=== PATIENT | female | born 1935 | race Caucasian/White ===

== ENCOUNTER 2016-05-25 14:35 | Inpatient (IN) | payer MEDICARE, OTHER ==
--- NOTE | 2016-05-25 14:55 | ER Document Report ---
ED Respiratory Problem - General Time seen by provider: 15:00 Mode of Arrival: Medic Information source: Emergency Med Personnel - HPI Onset: This afternoon - see HPI note Similar symptoms previously: No Recently seen / treated by doctor: No <LAURA CORNELIUS - Last Filed: 05/25/16 17:47> <REZA CAIN - Last Filed: 05/25/16 18:00> - General Stated Complaint: DIFFICULTY BREATHING Notes: Patient is an 80 year old female presenting to the emergency department via EMS for difficulty breathing, weakness, and fever. EMS was summoned for lethargic behavior and difficulty breathing. Patient was found to have a fever of 101 F via EMS and was given 975 Tylenol per rectum. Patient is on home oxygen. Patient takes albuterol, xanex, and hypertension medications. (LAURA CORNELIUS) - Related Data Allergies/Adverse Reactions: Penicillins Allergy (Verified 05/25/16 16:35) codeine Adverse Reaction (Verified 05/25/16 16:35) Past Medical History - General Information source: Emergency Med Personnel Cannot obtain history due to: Altered mental status - Social History Smoking Status: Unknown if Ever Smoked Family History: None Patient has suicidal ideation: No Patient has homicidal ideation: No - Past Medical History Cardiac Medical History: Reports: Hx Hypertension Pulmonary Medical History: Reports: Other - home O2 use Psychiatric Medical History: Reports: Hx Anxiety <LAURA CORNELIUS - Last Filed: 05/25/16 17:47> Review of Systems - Review of Systems Constitutional: See HPI, Fever, Weakness EENT: No symptoms reported Cardiovascular: No symptoms reported Respiratory: See HPI, Short of breath, Wheezing Gastrointestinal: No symptoms reported Genitourinary: No symptoms reported Female Genitourinary: No symptoms reported Musculoskeletal: No symptoms reported Skin: No symptoms reported Hematologic/Lymphatic: No symptoms reported Neurological/Psychological: See HPI, Weakness -: Yes All other systems reviewed and negative <LAURA CORNELIUS - Last Filed: 05/25/16 17:47> Physical Exam - Vital signs Interpretation: Febrile - 101 F with EMS <LAURA CORNELIUS - Last Filed: 05/25/16 17:47> <REZA CAIN - Last Filed: 05/25/16 18:00> - Vital signs Vitals: Resp Pulse Ox 20 96 05/25/16 15:45 05/25/16 15:45 - Notes Notes: GENERAL: Patient is somnolent, mumbling, oriented x1, well-nourished and in no acute distress. HEAD: Atraumatic, normocephalic. EYES: Pupils equal round and reactive to light, extraocular movements intact, sclera anicteric, conjunctiva are normal. ENT: Nares patent, nasal cannula in place. Moist mucous membranes. Patent airway. NECK: Normal range of motion, supple without lymphadenopathy. LUNGS: Slight increased accessory muscle use when breathing, scattered rales, mild wheezes. HEART: Tachycardia, regular rhythm without murmurs. ABDOMEN: Soft, non-tender. No guarding, no rebound. No masses appreciated. EXTREMITIES: Normal range of motion, 2+ pitting edema to the lower extremities bilaterally. NEUROLOGICAL: No focal neurological deficits. Moves all extremities spontaneously and on command. PSYCH: Normal affect. Normal mood. SKIN: Warm to touch consistent with fever, dry, normal turgor, no rashes or lesions noted. (LAURA CORNELIUS) Course - Laboratory Result Diagrams: 05/25/16 15:55 05/25/16 15:55 - Consults Dr. Mckay Time consulted: 17:37 <LAURA CORNELIUS - Last Filed: 05/25/16 17:47> - Laboratory Result Diagrams: 05/25/16 15:55 05/25/16 15:55 - EKG Interpretation by Co EKG shows normal: Sinus rhythm Rate: Normal Rhythm: NSR Heart block present: No: 1st Degree, Mobitz 1, Mobitz 2, CHB (3rd degree block) <REZA CAIN - Last Filed: 05/25/16 18:00> - Vital Signs Vital signs: Temp Pulse Resp BP Pulse Ox 98.1 F 23 H 127/59 H 90 L 05/25/16 16:08 05/25/16 16:01 05/25/16 16:01 05/25/16 16:01 - Laboratory Laboratory results interpreted by ne: 05/25/16 05/25/16 05/25/16 15:55 15:55 15:55 WBC 17.8 H RBC 3.11 L Hgb 8.1 L Hct 26.5 L MCH 26.0 L MCHC 30.5 L RDW 16.6 H Lymphocytes % (Manual) 7 L Eosinophils % (Manual) 11 H Abs Neuts (Manual) 13.4 H Absolute Eos (Manual) 2.0 H Carbonic Acid ABG pH ABG pCO2 ABG pO2 ABG HCO3 ABG Total CO2 ABG O2 Saturation Potassium 5.9 H Chloride 90 L Carbon Dioxide 37 H BUN 30 H Glucose 179 H Lactic Acid < 0.5 L Calcium 10.8 H Urine Protein Urine Ascorbic Acid 05/25/16 05/25/16 15:55 16:17 WBC RBC Hgb Hct MCH MCHC RDW Lymphocytes % (Manual) Eosinophils % (Manual) Abs Neuts (Manual) Absolute Eos (Manual) Carbonic Acid 2.98 H ABG pH 7.25 L ABG pCO2 98.9 H* ABG pO2 63.7 L ABG HCO3 42.4 H ABG Total CO2 45.4 H ABG O2 Saturation 86.8 L Potassium Chloride Carbon Dioxide BUN Glucose Lactic Acid Calcium Urine Protein 100 H Urine Ascorbic Acid 40 H - EKG Interpretation by Me Additional EKG results interpreted by me: 05/25/16 15:32 Multiple PACs and PVCs (REZA CAIN) - Consults Dr. Mckay Reason for consultation: 05/25/16 17:[address] Mckay for possible admission; he will admit the patient to IMCU. (LAURA CORNELIUS) Discharge <LAURA CORNELIUS - Last Filed: 05/25/16 17:47> - Discharge Admitting Provider: Hospitalist - Dr. Mckay Unit Admitted: IMCU <REZA CAIN - Last Filed: 05/25/16 18:00> - Discharge Clinical Impression: Pneumonia, Anemia, Dehydration, Acute respiratory failure with hypercapnia Condition: Poor Disposition: ADMITTED INPATIENT Scribe Documentation - Scribe Written by Scribkevin:: Laura Cornelius 05/25/16 15:12 acting as scribe for :: Machelle <LAURA CORNELIUS - Last Filed: 05/25/16 17:47>
[2016-05-25] MEDS ORDERED: IPRATROPIUM/ALBUTEROL 0.5-2.5 MG/3 ML AMPUL NEB ONE ×2 (15:06→15:11)
[2016-05-25] MEDS ORDERED: LEVOFLOXACIN 750 MG/D5W RTU 150 ML IV ONE (16:01)
[2016-05-25] MEDS ORDERED: NORMAL SALINE 1000 ML 500 ML IV ONE (16:03)
[2016-05-25 16:16] LABS: APPEARANCE,URINE SLIGHTLY-CLOUDY; BILIRUBIN,URINE NEGATIVE (NEGATIVE); GLUCOSE, URINE NEGATIVE (NEGATIVE); KETONES,URINE NEGATIVE (NEGATIVE); LEUKOCYTE ESTERASE,URINE NEGATIVE (NEGATIVE); NITRITE,URINE NEGATIVE (NEGATIVE); PROTEIN,URINE 100 mg/dL (NEGATIVE); URINE SPECIFIC GRAVITY 1.013; UROBILINOGEN,URINE NEGATIVE mg/dL (<2.0)
[2016-05-25 16:17] LABS: HEMATOCRIT 26.5 % (36.0-47.0); HEMOGLOBIN 8.1 g/dL (12.0-15.5); HGB HCT DIFFERENCE -2.2; MEAN CORPUSCULAR HGB CONC 30.5 g/dL (32.0-36.0); MEAN CORPUSCULAR VOLUME 85 fl (80-97); RED BLOOD COUNT 3.11 10^6/uL (3.72-5.28); RED CELL DISTRIBUTION WIDTH 16.6 % (11.5-14.0); WHITE BLOOD COUNT 17.8 10^3/uL (4.0-10.5)
[2016-05-25 16:21] LABS: PROTHROMBIN TIME 12.2 SEC (11.4-15.4)
[2016-05-25 16:37] LABS: BASOPHILS % (MANUAL) 0 % (0-2); EOSINOPHILS % (MANUAL) 11 % (0-6); LYMPHOCYTES % (MANUAL) 7 % (13-45); TOTAL CELLS COUNTED 100
[2016-05-25 16:43] LABS: ANISOCYTOSIS 1+; HYPOCHROMASIA SLIGHT; POLYCHROMASIA SLIGHT; TOXIC GRANULATION SLIGHT
[2016-05-25 16:44] LABS: STOMATOCYTES 2+; TARGET CELLS SLIGHT
[2016-05-25 16:46] LABS: ALANINE AMINOTRANSFERASE 42 U/L (9-52); ALBUMIN 3.5 g/dL (3.5-5.0); ALKALINE PHOSPHATASE 108 U/L (38-126); ANION GAP 11 (5-19); ASPARTATE AMINO TRANSFERASE 32 U/L (14-36); BILIRUBIN,DIRECT 0.3 mg/dL (0.0-0.4); BILIRUBIN,TOTAL 0.4 mg/dL (0.2-1.3); BLOOD UREA NITROGEN 30 mg/dL (7-20); CALCIUM 10.8 mg/dL (8.4-10.2); CARBON DIOXIDE 37 mmol/L (22-30); CHLORIDE 90 mmol/L (98-107); CREATININE RESULT 0.76 mg/dL (0.52-1.25); GLUCOSE 179 mg/dL (75-110); POTASSIUM 5.9 mmol/L (3.6-5.0); SODIUM 137.7 mmol/L (137-145); TOTAL PROTEIN 6.5 g/dL (6.3-8.2)
[2016-05-25 16:51] LABS: ARTERIAL BLOOD BASE EXCESS 12.8 mmol/L; ARTERIAL BLOOD O2 SATURATION 86.8 % (94-98)
[2016-05-25] MEDS ORDERED: ACETAMINOPHEN 325 MG TABLET PO PRN (18:06)
[2016-05-25] MEDS ORDERED: AZTREONAM 1 GM in DEXTROSE 5%-WATER 50 ML IV ONE ×4 (19:00)
--- NOTE | 2016-05-25 19:20 | PDOC H&P ---
History of Present Illness Admission Date/PCP: 05/25/16 18:06 Patient complains of: Shortness of breath History of Present Illness: JALYN MERCEDES is a 80 year old female with history of oxygen dependent COPD that presents to the emergency department by EMS with difficulty breathing, weakness , fevers. Patient was noted by EMS to have temperature 101.0F. I cannot obtain adequate history from patient secondary to encephalopathic state from hypercapnia. Past Medical History Cardiac Medical History: Reports: Hypertension Pulmonary Medical History: Reports: Chronic Obstructive Pulmonary Disease (COPD) , Other - home O2 use GI Medical History: Reports: Gastroesophageal Reflux Disease Past Surgical History Past Surgical History: Unable to ascertain given encephalopathic state Social History Smoking Status: Unknown if Ever Smoked - Advance Directive Resuscitation Status: Full Code Family History Family History: Other - Unable to ascertain Parental Family History Reviewed: Yes Children Family History Reviewed: Yes Sibling(s) Family History Reviewed.: Yes Medication/Allergy Allergies/Adverse Reactions: Penicillins Allergy (Verified 05/25/16 16:35) codeine Adverse Reaction (Verified 05/25/16 16:35) Review of Systems ROS unobtainable: Due to mental status Physical Exam Vital Signs: Temp Pulse Resp BP Pulse Ox 97.8 F 20 127/59 H 96 05/25/16 18:55 05/25/16 17:00 05/25/16 16:01 05/25/16 17:00 PHYSICAL EXAM: GENERAL: Minimally responsive on BiPAP HEENT: Normocephalic, no scleral icterus, conjunctiva clear, EOEM intact, PERRLA , moist mucous membranes NECK: trachea midline, no thyromegally RESPIRATORY: Bilateral wheezes, diminished air excursion CARDIAC: Regular rate and rhythm, no murmur/adrianna/rub ABDOMEN: Soft, no distension, no tenderness, no guarding, normal bowel sounds, negative Kraus sign RECTAL: deferred : deferred EXTREMITIES: No edema, cyanosis, clubbing MUSCULOSKELETAL: No joint swelling or deformity VASCULAR: normal peripheral pulses NEUROLOGIC: Encephalopathy SKIN: No rash, no wounds, no worrisome skin lesions Results Laboratory Results: Labs- All tests 24 hr 05/25/16 05/25/16 05/25/16 15:55 15:55 15:55 WBC 17.8 H RBC 3.11 L Hgb 8.1 L Hct 26.5 L MCV 85 MCH 26.0 L MCHC 30.5 L RDW 16.6 H Plt Count 279 Total Counted 100 Seg Neutrophils % Not Reportable Seg Neuts % (Manual) 75 Lymphocytes % Not Reportable Lymphocytes % (Manual) 7 L Monocytes % Not Reportable Monocytes % (Manual) 7 Eosinophils % Not Reportable Eosinophils % (Manual) 11 H Basophils % Not Reportable Basophils % (Manual) 0 Absolute Neutrophils Not Reportable Abs Neuts (Manual) 13.4 H Absolute Lymphocytes Not Reportable Abs Lymphs (Manual) 1.2 Absolute Monocytes Not Reportable Abs Monocytes (Manual) 1.2 Absolute Eosinophils Not Reportable Absolute Eos (Manual) 2.0 H Absolute Basophils Not Reportable Abs Basophils (Manual) 0.0 Toxic Granulation SLIGHT Platelet Comment ADEQUATE Polychromasia SLIGHT Hypochromasia SLIGHT Basophilic Stippling PRESENT Anisocytosis 1+ Target Cells SLIGHT Stomatocytes 2+ PT 12.2 INR 0.88 Carbonic Acid HCO3/H2CO3 Ratio ABG pH ABG pCO2 ABG pO2 ABG HCO3 ABG Total CO2 ABG O2 Saturation ABG Base Excess FiO2 Sodium 137.7 Potassium 5.9 H Chloride 90 L Carbon Dioxide 37 H Anion Gap 11 BUN 30 H Creatinine 0.76 Est GFR ( Amer) > 60 Est GFR (Non-Af Amer) > 60 Glucose 179 H Lactic Acid Calcium 10.8 H Total Bilirubin 0.4 Direct Bilirubin 0.3 Indirect Bilirubin Not Reportable Neonat Total Bilirubin Not Reportable AST 32 ALT 42 Alkaline Phosphatase 108 Troponin I Total Protein 6.5 Albumin 3.5 Urine Color Urine Appearance Urine pH Ur Specific [place] Urine Protein Urine Glucose (UA) Urine Ketones Urine Blood Urine Nitrite Urine Bilirubin Urine Urobilinogen Ur Leukocyte Esterase Urine WBC (Auto) Urine RBC (Auto) U Hyaline Cast (Auto) Urine Bacteria (Auto) Granular Casts (Auto) Urine Mucus (Auto) Urine Ascorbic Acid Influenza A (Rapid) Influenza B (Rapid) 05/25/16 05/25/16 05/25/16 15:55 15:55 15:55 WBC RBC Hgb Hct MCV MCH MCHC RDW Plt Count Total Counted Seg Neutrophils % Seg Neuts % (Manual) Lymphocytes % Lymphocytes % (Manual) Monocytes % Monocytes % (Manual) Eosinophils % Eosinophils % (Manual) Basophils % Basophils % (Manual) Absolute Neutrophils Abs Neuts (Manual) Absolute Lymphocytes Abs Lymphs (Manual) Absolute Monocytes Abs Monocytes (Manual) Absolute Eosinophils Absolute Eos (Manual) Absolute Basophils Abs Basophils (Manual) Toxic Granulation Platelet Comment Polychromasia Hypochromasia Basophilic Stippling Anisocytosis Target Cells Stomatocytes PT INR Carbonic Acid HCO3/H2CO3 Ratio ABG pH ABG pCO2 ABG pO2 ABG HCO3 ABG Total CO2 ABG O2 Saturation ABG Base Excess FiO2 Sodium Potassium Chloride Carbon Dioxide Anion Gap BUN Creatinine Est GFR ( Amer) Est GFR (Non-Af Amer) Glucose Lactic Acid < 0.5 L Calcium Total Bilirubin Direct Bilirubin Indirect Bilirubin Neonat Total Bilirubin AST ALT Alkaline Phosphatase Troponin I 0.015 Total Protein Albumin Urine Color YELLOW Urine Appearance SLIGHTLY-CLOUDY Urine pH 5.0 Ur Specific [place] 1.013 Urine Protein 100 H Urine Glucose (UA) NEGATIVE Urine Ketones NEGATIVE Urine Blood NEGATIVE Urine Nitrite NEGATIVE Urine Bilirubin NEGATIVE Urine Urobilinogen NEGATIVE Ur Leukocyte Esterase NEGATIVE Urine WBC (Auto) 1 Urine RBC (Auto) 20 U Hyaline Cast (Auto) 1 Urine Bacteria (Auto) TRACE Granular Casts (Auto) 5 Urine Mucus (Auto) RARE Urine Ascorbic Acid 40 H Influenza A (Rapid) Influenza B (Rapid) 05/25/16 05/25/16 16:17 16:40 WBC RBC Hgb Hct MCV MCH MCHC RDW Plt Count Total Counted Seg Neutrophils % Seg Neuts % (Manual) Lymphocytes % Lymphocytes % (Manual) Monocytes % Monocytes % (Manual) Eosinophils % Eosinophils % (Manual) Basophils % Basophils % (Manual) Absolute Neutrophils Abs Neuts (Manual) Absolute Lymphocytes Abs Lymphs (Manual) Absolute Monocytes Abs Monocytes (Manual) Absolute Eosinophils Absolute Eos (Manual) Absolute Basophils Abs Basophils (Manual) Toxic Granulation Platelet Comment Polychromasia Hypochromasia Basophilic Stippling Anisocytosis Target Cells Stomatocytes PT INR Carbonic Acid 2.98 H HCO3/H2CO3 Ratio 14:1 ABG pH 7.25 L ABG pCO2 98.9 H* ABG pO2 63.7 L ABG HCO3 42.4 H ABG Total CO2 45.4 H ABG O2 Saturation 86.8 L ABG Base Excess 12.8 FiO2 2L Sodium Potassium Chloride Carbon Dioxide Anion Gap BUN Creatinine Est GFR ( Amer) Est GFR (Non-Af Amer) Glucose Lactic Acid Calcium Total Bilirubin Direct Bilirubin Indirect Bilirubin Neonat Total Bilirubin AST ALT Alkaline Phosphatase Troponin I Total Protein Albumin Urine Color Urine Appearance Urine pH Ur Specific [place] Urine Protein Urine Glucose (UA) Urine Ketones Urine Blood Urine Nitrite Urine Bilirubin Urine Urobilinogen Ur Leukocyte Esterase Urine WBC (Auto) Urine RBC (Auto) U Hyaline Cast (Auto) Urine Bacteria (Auto) Granular Casts (Auto) Urine Mucus (Auto) Urine Ascorbic Acid Influenza A (Rapid) NEGATIVE Influenza B (Rapid) NEGATIVE Impressions: Chest X-Ray 05/25/16 15:08 IMPRESSION: COPD with bibasilar infiltrates right greater than left. Findings are consistent with pneumonia. Assessment & Plan - Diagnosis (1) Acute respiratory failure with hypercapnia Is this a current diagnosis for this admission?: YesPlan: Continue BiPAP for respiratory support. Titrate FiO2 to maintain O2 sat in the 80-92% range. Patient is home oxygen dependent at baseline. (2) Pneumonia Is this a current diagnosis for this admission?: YesPlan: Likely bacterial. Start IV Levaquin and aztreonam. Check blood cultures and sputum cultures. (3) COPD exacerbation Is this a current diagnosis for this admission?: YesPlan: Start IV Solu-Medrol. Scheduled and when necessary albuterol nebulizer treatments. (4) Encephalopathy Is this a current diagnosis for this admission?: YesPlan: Likely secondary to hypercapnia. (5) Hyperkalemia Is this a current diagnosis for this admission?: YesPlan: Start IV fluids. Repeat potassium in the morning. Patient will also be receiving scheduled and when necessary albuterol nebulizer treatments. (6) Anemia Is this a current diagnosis for this admission?: YesPlan: Check Hemoccult of stool. Check iron studies. Monitor H&H for stability and transfuse for hemoglobin less than 8.0. - Time Critical Time spent with patient: 35 or more minutes
[2016-05-25] MEDS: DEXTROSE 5%-1/2 NORMAL SALINE 1,000 ML IV PRN (20:28)
[2016-05-25 21:08] LABS: FOLATE > 20.00 ng/mL (>2.76)
[2016-05-25] MEDS: ALBUTEROL SULFATE 0.083% NEB 2.5 MG/3 ML AMPUL NEB SCH (21:54)
--- NOTE | 2016-05-25 22:30 | EKG REPORT ---
SEVERITY:- ABNORMAL ECG - SINUS TACHYCARDIA BORDERLINE INFERIOR Q WAVES : Confirmed by: Kathleen Jones MD 25-May-2016 22:29:18
[2016-05-25] MEDS: METHYLPREDNISOLONE INJ 40 MG/1 ML SDV IV SCH (22:40)
[2016-05-25] MEDS: FAMOTIDINE INJ/PF 20 MG/2 ML SDV IV SCH (22:40)
[2016-05-25] MEDS: GUAIFENESIN 600 MG TABLET.SA PO SCH (22:41)
[2016-05-25 23:57] LABS: ARTERIAL BLOOD BASE EXCESS 12.6 mmol/L; ARTERIAL BLOOD O2 SATURATION 37.8 % (94-98)
[2016-05-26] MEDS ORDERED: AZTREONAM 1 GM in DEXTROSE 5%-WATER 50 ML IV SCH (02:00)
[2016-05-26] MEDS: AZTREONAM 1 GM in DEXTROSE 5%-WATER 100 ML IV SCH ×3 (02:15→18:21)
[2016-05-26 04:40] LABS: VENOUS BLOOD HCO3 39.1 mmol/L (20-32); VENOUS BLOOD PH 7.31 (7.30-7.42)
[2016-05-26 04:42] LABS: VENOUS BLOOD PCO2 78.7 mmHg (35-63)
[2016-05-26 04:43] LABS: HEMATOCRIT 25.2 % (36.0-47.0); HGB HCT DIFFERENCE -1.8; MEAN CORPUSCULAR HEMOGLOBIN 25.5 pg (27.0-33.4); MEAN CORPUSCULAR HGB CONC 30.9 g/dL (32.0-36.0); MEAN CORPUSCULAR VOLUME 83 fl (80-97); RED BLOOD COUNT 3.06 10^6/uL (3.72-5.28); RED CELL DISTRIBUTION WIDTH 16.6 % (11.5-14.0)
[2016-05-26 04:50] LABS: HEMOGLOBIN 7.8 g/dL (12.0-15.5)
[2016-05-26 04:51] LABS: ANION GAP 11 (5-19); BLOOD UREA NITROGEN 26 mg/dL (7-20); CALCIUM 10.7 mg/dL (8.4-10.2); CARBON DIOXIDE 33 mmol/L (22-30); CHLORIDE 91 mmol/L (98-107); GLUCOSE 223 mg/dL (75-110); POTASSIUM 5.4 mmol/L (3.6-5.0); SODIUM 135.2 mmol/L (137-145)
[2016-05-26] MEDS: DEXTROSE 5%-1/2 NORMAL SALINE 1,000 ML IV PRN (05:54)
[2016-05-26] MEDS: METHYLPREDNISOLONE INJ 40 MG/1 ML SDV IV SCH ×3 (05:56→21:23)
[2016-05-26] MEDS ORDERED: NORMAL SALINE 250 ML IV PRN ×2 (07:41)
[2016-05-26] MEDS: ALBUTEROL SULFATE 0.083% NEB 2.5 MG/3 ML AMPUL NEB SCH ×3 (08:26→20:19)
[2016-05-26] MEDS: ENOXAPARIN SODIUM INJ 40 MG/0.4 ML DISP.SYRIN SUBCUT SCH (08:47)
[2016-05-26] MEDS: FAMOTIDINE INJ/PF 20 MG/2 ML SDV IV SCH (09:52)
[2016-05-26] MEDS: GUAIFENESIN 600 MG TABLET.SA PO SCH ×2 (09:53→21:23)
--- NOTE | 2016-05-26 09:56 | Progress Note ---
Provider Note Provider Note: 05/26/2016: Approximately midnight, I was notified by patient's floor nurse that patient desired DO NOT RESUSCITATE status. I went to the patient's bedside shortly thereafter. Patient's floor nurse Allie was present, along with patient's son, who is present at patient's bedside with patient's approval. Patient states that if her heart should stop, she wishes not to be resuscitated. However, she states that if her breathing slowly worsens overall, she is willing to be intubated. Above discussed in layperson's terms with patient and her son. Their conversations are lucid and appropriate. Will honor her wishes. Above discussed with daytime hospitalist team.
[2016-05-26] MEDS ORDERED: DEXTROSE 5%-1/2 NORMAL SALINE 1,000 ML IV PRN (11:18)
[2016-05-26] MEDS: HYDRALAZINE HCL INJ/PF 20 MG/1 ML SDV IV PRN (12:09)
[2016-05-26] MEDS: LORAZEPAM INJ 2 MG/1 ML VIAL IV PRN (12:09)
[2016-05-26] MEDS ORDERED: TIOTROPIUM BROMIDE DPI 5 CAP/KIT (18 MCG/CAP) IH ONE (12:30)
[2016-05-26] MEDS ORDERED: CALCIUM CARBONATE 250 MG/VITAMIN D3 125 UNIT TABLET PO ONE (12:30)
[2016-05-26] MEDS ORDERED: MULTIVITAMIN TABLET PO ONE (12:30)
[2016-05-26] MEDS ORDERED: LANSOPRAZOLE 15 MG TAB.RAP.DR PO ONE (12:30)
[2016-05-26] MEDS: TRAMADOL HCL 50 MG TABLET PO PRN (12:34)
[2016-05-26] MEDS ORDERED: METOPROLOL TARTRATE PF/INJ 5 MG/5 ML SDV IV PRN (12:57)
[2016-05-26] MEDS: ALPRAZOLAM 0.5 MG TABLET PO SCH ×2 (13:43→21:23)
--- NOTE | 2016-05-26 16:00 | PDOC PROGRESS REPORT ---
Subjective Progress Note for:: 05/26/16 Subjective:: Patient is becoming very agitated today as she was not able to receive home doses of benzodiazepines and opiates because she presented to the hospital unresponsive from respiratory failure. She is now much more alert. She does remain somewhat short of breath. She has no fevers, chills, headache, chest pain, abdominal pain. Physical Exam Vital Signs: Temp Pulse Resp BP Pulse Ox 98 F 110 H 16 148/64 H 98 05/26/16 14:43 05/26/16 14:43 05/26/16 14:43 05/26/16 14:43 05/26/16 14:43 Intake & Output 05/25/16 05/26/16 05/27/16 06:59 06:59 06:59 Intake Total 1320 300 Output Total 300 1350 Balance 1020 -1050 Weight 61.9 kg GENERAL: No acute respiratory distress, extremely anxious and agitated, moving constantly HEENT: Conjunctiva clear, nonicteric, moist mucous membranes, no JVD, midline trachea RESPIRATORY: Faint wheezes, diminished bilateral breath sounds CARDIAC: Slightly tachycardic and regular ABDOMEN: Soft, nondistended, nontender, positive bowel sounds, no rebound, no guarding EXTREMETIES: No edema, cyanosis, clubbing NEUROLOGIC: Alert, oriented to person/place/time, CN's grossly intact, no focal deficits SKIN: No rash, wounds PSYCH: Anxious Results Laboratory Results: 05/26/16 04:29 05/26/16 04:29 05/25/16 05/26/16 05/26/16 23:48 04:29 04:29 WBC 15.0 H RBC 3.06 L Hgb 7.8 L Hct 25.2 L MCV 83 MCH 25.5 L MCHC 30.9 L RDW 16.6 H Plt Count 247 Carbonic Acid 2.53 H HCO3/H2CO3 Ratio 16:1 ABG pH 7.31 L ABG pCO2 83.9 H* ABG pO2 25.5 L* ABG HCO3 40.8 H ABG O2 Saturation 37.8 L ABG Base Excess 12.6 VBG pH VBG pCO2 VBG HCO3 VBG Base Excess FiO2 35% Sodium 135.2 L Potassium 5.4 H Chloride 91 L Carbon Dioxide 33 H Anion Gap 11 BUN 26 H Creatinine 0.70 Est GFR ( Amer) > 60 Est GFR (Non-Af Amer) > 60 Glucose 223 H Calcium 10.7 H Blood Type Antibody Screen 05/26/16 05/26/16 04:29 05:54 WBC RBC Hgb Hct MCV MCH MCHC RDW Plt Count Carbonic Acid HCO3/H2CO3 Ratio ABG pH ABG pCO2 ABG pO2 ABG HCO3 ABG O2 Saturation ABG Base Excess VBG pH 7.31 VBG pCO2 78.7 H* VBG HCO3 39.1 H VBG Base Excess 11.0 FiO2 Sodium Potassium Chloride Carbon Dioxide Anion Gap BUN Creatinine Est GFR ( Amer) Est GFR (Non-Af Amer) Glucose Calcium Blood Type O NEGATIVE Antibody Screen NEGATIVE Impressions: Chest X-Ray 05/25/16 15:08 IMPRESSION: COPD with bibasilar infiltrates right greater than left. Findings are consistent with pneumonia. Assessment & Plan - Diagnosis (1) Acute respiratory failure with hypercapnia Is this a current diagnosis for this admission?: YesPlan: Clinically much better. ABG improved. Discontinue BiPAP and start nasal cannula oxygen. Titrate FiO2 to maintain O2 sat in the 80-92% range. Patient is home oxygen dependent at baseline. (2) Pneumonia Is this a current diagnosis for this admission?: YesPlan: Likely bacterial. Continue IV Levaquin and aztreonam day #2 pending blood cultures and sputum cultures. (3) COPD exacerbation Is this a current diagnosis for this admission?: YesPlan: Continue IV Solu-Medrol. Scheduled and when necessary albuterol nebulizer treatments. (4) Encephalopathy Is this a current diagnosis for this admission?: YesPlan: Likely secondary to hypercapnia. Now benzodiazepine and opiate withdrawal contributing. Much improved (5) Hyperkalemia Is this a current diagnosis for this admission?: YesPlan: Continue IV fluids. Repeat potassium in the morning. (6) Anemia Is this a current diagnosis for this admission?: YesPlan: Patient noted to have iron deficiency. Start iron supplementation. Transfuse 1 unit PRBC. Monitor H&H for stability posttransfusion. Check Hemoccult of stool. B-12 and folic acid levels normal. If H&H drops posttransfusion for discontinue Lovenox for DVT prophylaxis. (7) Anxiety Is this a current diagnosis for this admission?: YesPlan: Resume home dose of Xanax. (8) Chronic pain Is this a current diagnosis for this admission?: YesPlan: Chronic opiate dependent. Resume home dose of Isabella. - Time Time Spent with patient: 35 or more minutes
[2016-05-26 16:56] LABS: ABSOLUTE LYMPHOCYTES (AUTO) 0.7 10^3/uL (0.5-4.7); ABSOLUTE MONOCYTES (AUTO) 0.5 10^3/uL (0.1-1.4); ABSOLUTE NEUT (AUTO) 8.6 10^3/uL (1.7-8.2); BASOPHILS % (AUTO) 0.2 % (0-2); HEMATOCRIT 27.3 % (36.0-47.0); HEMOGLOBIN 8.9 g/dL (12.0-15.5); HGB HCT DIFFERENCE -0.6; LYMPHOCYTES % (AUTO) 6.9 % (13-45); MEAN CORPUSCULAR HEMOGLOBIN 26.7 pg (27.0-33.4); MEAN CORPUSCULAR HGB CONC 32.5 g/dL (32.0-36.0); MEAN CORPUSCULAR VOLUME 82 fl (80-97); RED BLOOD COUNT 3.32 10^6/uL (3.72-5.28); RED CELL DISTRIBUTION WIDTH 15.8 % (11.5-14.0); SEGMENTED NEUTROPHILS % (AUTO) 87.9 % (42-78); WHITE BLOOD COUNT 9.8 10^3/uL (4.0-10.5)
[2016-05-26] MEDS: DOCUSATE SODIUM 100 MG CAPSULE PO SCH (18:20)
[2016-05-26] MEDS: FERROUS SULFATE 325 MG TABLET PO SCH (18:20)
[2016-05-26] MEDS: MONTELUKAST SODIUM 10 MG TABLET PO SCH (21:22)
[2016-05-26] MEDS: ATORVASTATIN CALCIUM 10 MG TABLET PO SCH (21:22)
[2016-05-26] MEDS: ASPIRIN 81 MG TABLET, ENT COATED PO SCH (21:23)
[2016-05-27] MEDS: AZTREONAM 1 GM in DEXTROSE 5%-WATER 100 ML IV SCH (01:44)
[2016-05-27] MEDS: METHYLPREDNISOLONE INJ 40 MG/1 ML SDV IV SCH (05:44)
[2016-05-27] MEDS: ALPRAZOLAM 0.5 MG TABLET PO SCH ×3 (05:44→23:12)
[2016-05-27 06:41] LABS: HEMATOCRIT 26.1 % (36.0-47.0); HEMOGLOBIN 8.5 g/dL (12.0-15.5); HGB HCT DIFFERENCE -0.6; MEAN CORPUSCULAR HEMOGLOBIN 26.7 pg (27.0-33.4); MEAN CORPUSCULAR HGB CONC 32.7 g/dL (32.0-36.0); MEAN CORPUSCULAR VOLUME 82 fl (80-97); RED CELL DISTRIBUTION WIDTH 16.1 % (11.5-14.0); WHITE BLOOD COUNT 11.5 10^3/uL (4.0-10.5)
[2016-05-27 07:04] LABS: ANION GAP 10 (5-19); BLOOD UREA NITROGEN 23 mg/dL (7-20); CALCIUM 11.2 mg/dL (8.4-10.2); CARBON DIOXIDE 36 mmol/L (22-30); CHLORIDE 90 mmol/L (98-107); CREATININE RESULT 0.66 mg/dL (0.52-1.25); GLUCOSE 198 mg/dL (75-110); POTASSIUM 4.3 mmol/L (3.6-5.0); SODIUM 135.5 mmol/L (137-145)
[2016-05-27] MEDS: ALBUTEROL SULFATE 0.083% NEB 2.5 MG/3 ML AMPUL NEB SCH ×3 (08:21→20:33)
[2016-05-27] MEDS: FERROUS SULFATE 325 MG TABLET PO SCH ×2 (09:13→17:30)
[2016-05-27] MEDS: CARVEDILOL 12.5 MG TABLET PO SCH (09:14)
[2016-05-27] MEDS: GUAIFENESIN 600 MG TABLET.SA PO SCH ×2 (09:14→23:12)
[2016-05-27] MEDS: CALCIUM CARBONATE 250 MG/VITAMIN D3 125 UNIT TABLET PO SCH (09:14)
[2016-05-27] MEDS: DOCUSATE SODIUM 100 MG CAPSULE PO SCH ×2 (09:14→17:31)
[2016-05-27] MEDS: LANSOPRAZOLE 15 MG TAB.RAP.DR PO SCH (09:14)
[2016-05-27] MEDS: MULTIVITAMIN TABLET PO SCH (09:14)
[2016-05-27] MEDS: ENOXAPARIN SODIUM INJ 40 MG/0.4 ML DISP.SYRIN SUBCUT SCH (09:15)
[2016-05-27] MEDS: TIOTROPIUM BROMIDE DPI 5 CAP/KIT (18 MCG/CAP) IH SCH (09:22)
[2016-05-27] MEDS ORDERED: AZTREONAM 1 GM in DEXTROSE 5%-WATER 100 ML IV SCH (10:00)
[2016-05-27] MEDS ORDERED: CALCIUM CARBONATE PO SCH (10:00)
[2016-05-27] MEDS ORDERED: [UNRECOGNIZED DRUG - OTHER] PO SCH (10:00)
[2016-05-27] MEDS ORDERED: (PENDING PHARMACY ID) (Multivits-Min/Iron/Fa/Lutein [Centrum Silver Women Tablet] 1 TAB) PO SCH (10:00)
[2016-05-27] MEDS ORDERED: VITAMIN D3 PO SCH (10:00)
[2016-05-27] MEDS ORDERED: PREDNISONE 20 MG TABLET PO ONE (12:00)
[2016-05-27] MEDS: LEVOFLOXACIN 750 MG TABLET PO SCH (12:29)
[2016-05-27] MEDS: HYDRALAZINE HCL INJ/PF 20 MG/1 ML SDV IV PRN (15:34)
--- NOTE | 2016-05-27 17:07 | PDOC PROGRESS REPORT ---
Subjective Progress Note for:: 05/27/16 Subjective:: Patient's respiratory status is markedly improved from yesterday. Her mental status is back to normal. Patient denies fever, chills, headache, new focal weakness, chest pain, abdominal pain, nausea, vomiting, diarrhea, constipation. Physical Exam Vital Signs: Temp Pulse Resp BP Pulse Ox 98.1 F 90 19 184/79 H 100 05/27/16 15:16 05/27/16 15:16 05/27/16 15:16 05/27/16 15:16 05/27/16 15:16 Intake & Output 05/26/16 05/27/16 05/28/16 06:59 06:59 06:59 Intake Total 1320 1575 118 Output Total 300 1350 Balance 1020 225 118 Weight 61.9 kg 56 kg GENERAL: No acute distress HEENT: Conjunctiva clear, nonicteric, moist mucous membranes, no JVD, midline trachea RESPIRATORY: Faint bilateral wheezes, diminished air excursion CARDIAC: Regular rate and rhythm, no murmurs/gallops/rubs ABDOMEN: Soft, nondistended, nontender, positive bowel sounds, no rebound, no guarding EXTREMETIES: No edema, cyanosis, clubbing NEUROLOGIC: Alert, oriented to person/place/time, CN's grossly intact, no focal deficits SKIN: No rash, wounds PSYCH: Normal mood, normal affect Results Laboratory Results: 05/27/16 06:21 05/27/16 06:21 05/27/16 05/27/16 06:21 06:21 WBC 11.5 H RBC 3.20 L Hgb 8.5 L Hct 26.1 L MCV 82 MCH 26.7 L MCHC 32.7 RDW 16.1 H Plt Count 280 Sodium 135.5 L Potassium 4.3 Chloride 90 L Carbon Dioxide 36 H Anion Gap 10 BUN 23 H Creatinine 0.66 Est GFR ( Amer) > 60 Est GFR (Non-Af Amer) > 60 Glucose 198 H Calcium 11.2 H Impressions: Chest X-Ray 05/25/16 15:08 IMPRESSION: COPD with bibasilar infiltrates right greater than left. Findings are consistent with pneumonia. Assessment & Plan - Diagnosis (1) Acute respiratory failure with hypercapnia Is this a current diagnosis for this admission?: YesPlan: Clinically much better. Now stable on nasal cannula oxygen. Titrate FiO2 to maintain O2 sat in the 80-92% range. Patient is home oxygen dependent at baseline. (2) Pneumonia Is this a current diagnosis for this admission?: YesPlan: Likely bacterial. Cultures negative. Discontinue IV antibiotics. Start oral Levaquin. (3) COPD exacerbation Is this a current diagnosis for this admission?: YesPlan: Discontinue IV Solu-Medrol. Start oral prednisone. Scheduled and when necessary albuterol nebulizer treatments. (4) Encephalopathy Is this a current diagnosis for this admission?: YesPlan: Resolved. Secondary to hypercapnia. (5) Hyperkalemia Is this a current diagnosis for this admission?: Yes (6) Anemia Is this a current diagnosis for this admission?: YesPlan: Patient noted to have iron deficiency. Started on iron supplementation. Transfused 1 unit PRBC. Monitor H&H for stability posttransfusion. Check Hemoccult of stool. B-12 and folic acid levels normal. If H&H drops posttransfusion for discontinue Lovenox for DVT prophylaxis. (7) Anxiety Is this a current diagnosis for this admission?: YesPlan: Continue Xanax. (8) Chronic pain Is this a current diagnosis for this admission?: Yes - Time Time Spent with patient: 35 or more minutes Anticipated discharge: Home with Homehealth Within: within 72 hours
[2016-05-27] MEDS ORDERED: AMLODIPINE BESYLATE 5 MG TABLET PO ONE (17:15)
[2016-05-27] MEDS: LORAZEPAM INJ 2 MG/1 ML VIAL IV PRN (17:31)
[2016-05-27] MEDS ORDERED: LEVOFLOXACIN 750 MG/D5W RTU 750 MG/150 ML RTUPB IV SCH (18:00)
[2016-05-27] MEDS: MONTELUKAST SODIUM 10 MG TABLET PO SCH (23:12)
[2016-05-27] MEDS: ASPIRIN 81 MG TABLET, ENT COATED PO SCH (23:12)
[2016-05-27] MEDS: ATORVASTATIN CALCIUM 10 MG TABLET PO SCH (23:12)
[2016-05-27] MEDS ORDERED: PROMETHAZINE HCL INJ 25 MG/1 ML VIAL ONE (23:33)
[2016-05-27] MEDS: PROMETHAZINE HCL INJ 25 MG/1 ML VIAL IV PRN (23:39)
[2016-05-28] MEDS: HYDROCODONE/ACETAMINOPHEN 10-325 MG TABLET PO PRN (01:16)
[2016-05-28 06:00] LABS: HEMATOCRIT 31.8 % (36.0-47.0); HEMOGLOBIN 10.2 g/dL (12.0-15.5); HGB HCT DIFFERENCE -1.2; MEAN CORPUSCULAR HEMOGLOBIN 26.2 pg (27.0-33.4); MEAN CORPUSCULAR HGB CONC 32.1 g/dL (32.0-36.0); MEAN CORPUSCULAR VOLUME 82 fl (80-97); RED CELL DISTRIBUTION WIDTH 16.3 % (11.5-14.0); WHITE BLOOD COUNT 16.3 10^3/uL (4.0-10.5)
[2016-05-28] MEDS: ALPRAZOLAM 0.5 MG TABLET PO SCH ×3 (06:06→22:13)
[2016-05-28 06:25] LABS: ANION GAP 10 (5-19); BLOOD UREA NITROGEN 28 mg/dL (7-20); CALCIUM 11.9 mg/dL (8.4-10.2); CARBON DIOXIDE 38 mmol/L (22-30); CHLORIDE 91 mmol/L (98-107); CREATININE RESULT 0.69 mg/dL (0.52-1.25); GLUCOSE 95 mg/dL (75-110); POTASSIUM 4.3 mmol/L (3.6-5.0); SODIUM 138.8 mmol/L (137-145)
[2016-05-28] MEDS: ALBUTEROL SULFATE 0.083% NEB 2.5 MG/3 ML AMPUL NEB SCH ×3 (08:16→19:59)
[2016-05-28] MEDS: ENOXAPARIN SODIUM INJ 40 MG/0.4 ML DISP.SYRIN SUBCUT SCH (08:17)
[2016-05-28] MEDS: PREDNISONE 20 MG TABLET PO SCH (08:18)
[2016-05-28] MEDS: LANSOPRAZOLE 15 MG TAB.RAP.DR PO SCH (08:18)
[2016-05-28] MEDS: FERROUS SULFATE 325 MG TABLET PO SCH ×2 (08:42→17:13)
[2016-05-28] MEDS: MULTIVITAMIN TABLET PO SCH (09:52)
[2016-05-28] MEDS: DOCUSATE SODIUM 100 MG CAPSULE PO SCH ×2 (09:52→17:13)
[2016-05-28] MEDS: CARVEDILOL 12.5 MG TABLET PO SCH (09:53)
[2016-05-28] MEDS: AMLODIPINE BESYLATE 5 MG TABLET PO SCH (09:53)
[2016-05-28] MEDS: CALCIUM CARBONATE 250 MG/VITAMIN D3 125 UNIT TABLET PO SCH (09:53)
[2016-05-28] MEDS: GUAIFENESIN 600 MG TABLET.SA PO SCH ×2 (09:54→22:13)
[2016-05-28] MEDS: TIOTROPIUM BROMIDE DPI 5 CAP/KIT (18 MCG/CAP) IH SCH (11:15)
[2016-05-28] MEDS: LORAZEPAM INJ 2 MG/1 ML VIAL IV PRN (12:04)
--- NOTE | 2016-05-28 18:16 | PDOC PROGRESS REPORT ---
Subjective Progress Note for:: 05/28/16 Subjective:: Patient was very anxious and today requiring Ativan. She is now resting comfortably. She has been on off BiPAP intermittently. Patient denies fever, chills, headache, new focal weakness, chest pain, abdominal pain, nausea, vomiting, diarrhea, constipation. Physical Exam Vital Signs: Temp Pulse Resp BP Pulse Ox 98.4 F 88 20 147/72 H 100 05/28/16 15:36 05/28/16 15:36 05/28/16 15:36 05/28/16 15:36 05/28/16 15:36 Intake & Output 05/27/16 05/28/16 05/29/16 06:59 06:59 06:59 Intake Total 1575 1043 360 Output Total 1350 Balance 225 1043 360 Weight 56 kg 61.3 kg GENERAL: No acute distress HEENT: Conjunctiva clear, nonicteric, moist mucous membranes, no JVD, midline trachea RESPIRATORY: diminished air excursion, no overt wheezing CARDIAC: Regular rate and rhythm, no murmurs/gallops/rubs ABDOMEN: Soft, nondistended, nontender, positive bowel sounds, no rebound, no guarding EXTREMETIES: No edema, cyanosis, clubbing NEUROLOGIC: Drowsy, oriented to person/place/time, CN's grossly intact, no focal deficits SKIN: No rash, wounds PSYCH: Normal mood, normal affect Results Laboratory Results: 05/28/16 05:30 05/28/16 05:30 05/28/16 05/28/16 05:30 05:30 WBC 16.3 H RBC 3.90 Hgb 10.2 L Hct 31.8 L MCV 82 MCH 26.2 L MCHC 32.1 RDW 16.3 H Plt Count 329 Sodium 138.8 Potassium 4.3 Chloride 91 L Carbon Dioxide 38 H Anion Gap 10 BUN 28 H Creatinine 0.69 Est GFR ( Amer) > 60 Est GFR (Non-Af Amer) > 60 Glucose 95 Calcium 11.9 H 05/26/16 04:18 Sputum Gram Stain - Final 05/26/16 04:18 Sputum Sputum Culture - Final Corynebacterium Striatum Greatly Reduced Normal Raiza Impressions: Chest X-Ray 05/25/16 15:08 IMPRESSION: COPD with bibasilar infiltrates right greater than left. Findings are consistent with pneumonia. Assessment & Plan - Diagnosis (1) Acute respiratory failure with hypercapnia Is this a current diagnosis for this admission?: YesPlan: Continue alternating between BiPAP and nasal cannula oxygen as needed. Titrate FiO2 to maintain O2 sat in the 80-92% range. Patient is home oxygen dependent at baseline. 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 I have had discussion with patient's son and he agrees to have palliative care consult. Patient would probably qualify for hospice care. (2) Pneumonia Is this a current diagnosis for this admission?: YesPlan: Likely bacterial. Cultures negative. Continue oral Levaquin until 06/03/2016. (3) COPD exacerbation Is this a current diagnosis for this admission?: YesPlan: Continue oral prednisone and taper as tolerated. Continue Spiriva. Scheduled and when necessary albuterol nebulizer treatments. (4) Encephalopathy Is this a current diagnosis for this admission?: YesPlan: Resolved. Secondary to hypercapnia. (5) Hyperkalemia Is this a current diagnosis for this admission?: Yes (6) Anemia Is this a current diagnosis for this admission?: YesPlan: Patient noted to have iron deficiency. Started on iron supplementation. Transfused 1 unit PRBC. Monitor H&H for stability posttransfusion. Check Hemoccult of stool. B-12 and folic acid levels normal. If H&H drops posttransfusion for discontinue Lovenox for DVT prophylaxis. (7) Anxiety Is this a current diagnosis for this admission?: YesPlan: Continue Xanax. (8) Chronic pain Is this a current diagnosis for this admission?: YesPlan: Chronic opiate dependent. Resume home dose of [place]. (9) Leukocytosis Is this a current diagnosis for this admission?: YesPlan: Afebrile. Likely steroid associated. - Time Time Spent with patient: 35 or more minutes Anticipated discharge: Home, Hospice Within: within 72 hours
[2016-05-28] MEDS: MONTELUKAST SODIUM 10 MG TABLET PO SCH (22:13)
[2016-05-28] MEDS: ASPIRIN 81 MG TABLET, ENT COATED PO SCH (22:13)
[2016-05-28] MEDS: ATORVASTATIN CALCIUM 10 MG TABLET PO SCH (22:13)
[2016-05-29] MEDS ORDERED: PROMETHAZINE HCL INJ 25 MG/1 ML VIAL ONE (04:32)
[2016-05-29] MEDS: PROMETHAZINE HCL INJ 25 MG/1 ML VIAL IV PRN (04:44)
[2016-05-29] MEDS: ALPRAZOLAM 0.5 MG TABLET PO SCH ×3 (05:19→22:29)
[2016-05-29 05:39] LABS: ABSOLUTE BASOPHILS # (AUTO) 0.1 10^3/uL (0.0-0.2); ABSOLUTE EOSINOPHILS # (AUTO) 0.7 10^3/uL (0.0-0.6); ABSOLUTE LYMPHOCYTES (AUTO) 2.2 10^3/uL (0.5-4.7); ABSOLUTE MONOCYTES (AUTO) 1.5 10^3/uL (0.1-1.4); ABSOLUTE NEUT (AUTO) 9.4 10^3/uL (1.7-8.2); BASOPHILS % (AUTO) 0.6 % (0-2); HEMOGLOBIN 10.9 g/dL (12.0-15.5); HGB HCT DIFFERENCE -0.3; LYMPHOCYTES % (AUTO) 15.8 % (13-45); MEAN CORPUSCULAR HEMOGLOBIN 27.1 pg (27.0-33.4); MEAN CORPUSCULAR HGB CONC 32.9 g/dL (32.0-36.0); MEAN CORPUSCULAR VOLUME 82 fl (80-97); RED BLOOD COUNT 4.02 10^6/uL (3.72-5.28); SEGMENTED NEUTROPHILS % (AUTO) 67.6 % (42-78); WHITE BLOOD COUNT 13.8 10^3/uL (4.0-10.5)
[2016-05-29] MEDS: HYDROCODONE/ACETAMINOPHEN 10-325 MG TABLET PO PRN (05:45)
[2016-05-29 05:54] LABS: ANION GAP 10 (5-19); BLOOD UREA NITROGEN 29 mg/dL (7-20); CALCIUM 11.8 mg/dL (8.4-10.2); CARBON DIOXIDE 38 mmol/L (22-30); CHLORIDE 90 mmol/L (98-107); CREATININE RESULT 0.82 mg/dL (0.52-1.25); GLUCOSE 81 mg/dL (75-110); MAGNESIUM 1.8 mg/dL (1.6-2.3); POTASSIUM 3.9 mmol/L (3.6-5.0); SODIUM 138.4 mmol/L (137-145)
[2016-05-29] MEDS: ENOXAPARIN SODIUM INJ 40 MG/0.4 ML DISP.SYRIN SUBCUT SCH (08:28)
[2016-05-29] MEDS: PREDNISONE 20 MG TABLET PO SCH (08:28)
[2016-05-29] MEDS: LANSOPRAZOLE 15 MG TAB.RAP.DR PO SCH (08:28)
[2016-05-29] MEDS: FERROUS SULFATE 325 MG TABLET PO SCH ×2 (08:28→17:11)
[2016-05-29] MEDS: ALBUTEROL SULFATE 0.083% NEB 2.5 MG/3 ML AMPUL NEB SCH ×3 (08:36→20:47)
[2016-05-29] MEDS: AMLODIPINE BESYLATE 5 MG TABLET PO SCH (09:40)
[2016-05-29] MEDS: CARVEDILOL 12.5 MG TABLET PO SCH (09:40)
[2016-05-29] MEDS: GUAIFENESIN 600 MG TABLET.SA PO SCH ×2 (09:40→22:28)
[2016-05-29] MEDS: MULTIVITAMIN TABLET PO SCH (09:41)
[2016-05-29] MEDS: CALCIUM CARBONATE 250 MG/VITAMIN D3 125 UNIT TABLET PO SCH (09:41)
[2016-05-29] MEDS: DOCUSATE SODIUM 100 MG CAPSULE PO SCH ×2 (09:41→17:11)
[2016-05-29] MEDS: TIOTROPIUM BROMIDE DPI 5 CAP/KIT (18 MCG/CAP) IH SCH (09:42)
[2016-05-29] MEDS: LEVOFLOXACIN 750 MG TABLET PO SCH (11:41)
[2016-05-29] MEDS ORDERED: PROMETHAZINE HCL 25 MG TABLET PO PRN (12:52)
[2016-05-29] MEDS ORDERED: PROMETHAZINE HCL INJ 25 MG/1 ML VIAL IV PRN (12:53)
[2016-05-29] MEDS ORDERED: MAGNESIUM HYDROXIDE SUSP 30 ML UDCUP PO ONE (14:00)
[2016-05-29] MEDS: ONDANSETRON HCL INJ/PF 4 MG/2 ML SDV IV PRN (15:16)
--- NOTE | 2016-05-29 16:25 | PDOC PROGRESS REPORT ---
Subjective Progress Note for:: 05/29/16 Subjective:: Patient has been having nausea and constipation. No vomiting. Shortness of breath approaching baseline. Patient denies fever, chills, headache, new focal weakness, chest pain, abdominal pain. Physical Exam Vital Signs: Temp Pulse Resp BP Pulse Ox 98.3 F 156 H 22 H 153/73 H 96 05/29/16 11:14 05/29/16 14:00 05/29/16 13:25 05/29/16 11:14 05/29/16 11:14 Intake & Output 05/28/16 05/29/16 05/30/16 06:59 06:59 06:59 Intake Total 1043 728 480 Balance 1043 728 480 Weight 61.3 kg 60.9 kg Results Laboratory Results: 05/29/16 05:25 05/29/16 05:25 05/29/16 05/29/16 05:25 05:25 WBC 13.8 H RBC 4.02 Hgb 10.9 L Hct 33.0 L MCV 82 MCH 27.1 MCHC 32.9 RDW 17.0 H Plt Count 345 Seg Neutrophils % 67.6 Lymphocytes % 15.8 Monocytes % 11.0 Eosinophils % 5.0 Basophils % 0.6 Absolute Neutrophils 9.4 H Absolute Lymphocytes 2.2 Absolute Monocytes 1.5 H Absolute Eosinophils 0.7 H Absolute Basophils 0.1 Sodium 138.4 Potassium 3.9 Chloride 90 L Carbon Dioxide 38 H Anion Gap 10 BUN 29 H Creatinine 0.82 Est GFR ( Amer) > 60 Est GFR (Non-Af Amer) > 60 Glucose 81 Calcium 11.8 H Magnesium 1.8 Impressions: Chest X-Ray 05/25/16 15:08 IMPRESSION: COPD with bibasilar infiltrates right greater than left. Findings are consistent with pneumonia. Assessment & Plan - Diagnosis (1) Acute respiratory failure with hypercapnia Is this a current diagnosis for this admission?: YesPlan: Continue alternating between BiPAP and nasal cannula oxygen as needed. Titrate FiO2 to maintain O2 sat in the 80-92% range. Patient is home oxygen dependent at baseline. 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 I have had discussion with patient's son and he agrees to have palliative care consult. Patient would probably qualify for hospice care. (2) Pneumonia Is this a current diagnosis for this admission?: YesPlan: Likely bacterial. Cultures negative. Continue oral Levaquin until 06/03/2016. (3) COPD exacerbation Is this a current diagnosis for this admission?: YesPlan: Continue oral prednisone and taper as tolerated. Continue Spiriva. Scheduled and when necessary albuterol nebulizer treatments. (4) Encephalopathy Is this a current diagnosis for this admission?: YesPlan: Resolved. Secondary to hypercapnia. (5) Hyperkalemia Is this a current diagnosis for this admission?: Yes (6) Anemia Is this a current diagnosis for this admission?: YesPlan: Patient noted to have iron deficiency. Started on iron supplementation. Transfused 1 unit PRBC. Monitor H&H for stability posttransfusion. Check Hemoccult of stool. B-12 and folic acid levels normal. If H&H drops posttransfusion discontinue Lovenox for DVT prophylaxis. (7) Anxiety Is this a current diagnosis for this admission?: YesPlan: Continue Xanax. (8) Chronic pain Is this a current diagnosis for this admission?: YesPlan: Chronic opiate dependent. [place]. (9) Leukocytosis Is this a current diagnosis for this admission?: YesPlan: Afebrile. Likely steroid associated. (10) Constipation Is this a current diagnosis for this admission?: YesPlan: Likely causing nausea. Continue Colace. Give milk of magnesia. [place] contributing. - Time Time Spent with patient: 35 or more minutes
[2016-05-29] MEDS: TRAMADOL HCL 50 MG TABLET PO PRN (20:09)
[2016-05-29] MEDS: ASPIRIN 81 MG TABLET, ENT COATED PO SCH (22:28)
[2016-05-29] MEDS: ATORVASTATIN CALCIUM 10 MG TABLET PO SCH (22:29)
[2016-05-29] MEDS: MONTELUKAST SODIUM 10 MG TABLET PO SCH (22:29)
[2016-05-30] MEDS: ALPRAZOLAM 0.5 MG TABLET PO SCH ×3 (05:35→21:03)
[2016-05-30] MEDS: PREDNISONE 20 MG TABLET PO SCH (07:25)
[2016-05-30] MEDS: LANSOPRAZOLE 15 MG TAB.RAP.DR PO SCH (07:25)
[2016-05-30] MEDS: ENOXAPARIN SODIUM INJ 40 MG/0.4 ML DISP.SYRIN SUBCUT SCH (07:26)
[2016-05-30] MEDS: ALBUTEROL SULFATE 0.083% NEB 2.5 MG/3 ML AMPUL NEB SCH ×3 (08:34→20:58)
[2016-05-30] MEDS: CALCIUM CARBONATE 250 MG/VITAMIN D3 125 UNIT TABLET PO SCH (10:06)
[2016-05-30] MEDS: TIOTROPIUM BROMIDE DPI 5 CAP/KIT (18 MCG/CAP) IH SCH (10:06)
[2016-05-30] MEDS: GUAIFENESIN 600 MG TABLET.SA PO SCH ×2 (10:06→21:03)
[2016-05-30] MEDS: AMLODIPINE BESYLATE 5 MG TABLET PO SCH (10:07)
[2016-05-30] MEDS: MULTIVITAMIN TABLET PO SCH (10:07)
[2016-05-30] MEDS: CARVEDILOL 12.5 MG TABLET PO SCH (10:07)
[2016-05-30] MEDS: DOCUSATE SODIUM 100 MG CAPSULE PO SCH ×2 (10:07→17:26)
[2016-05-30] MEDS: FERROUS SULFATE 325 MG TABLET PO SCH ×2 (10:08→17:26)
[2016-05-30] MEDS: ALBUTEROL SULFATE 0.083% NEB 2.5 MG/3 ML AMPUL NEB PRN ×2 (12:02→18:20)
[2016-05-30] MEDS: ONDANSETRON HCL INJ/PF 4 MG/2 ML SDV IV PRN ×3 (13:58→23:31)
--- NOTE | 2016-05-30 17:04 | PDOC PROGRESS REPORT ---
Subjective Progress Note for:: 05/30/16 Subjective:: Patient shortness breath is improved. Patient denies fever, chills, headache, new focal weakness, chest pain, abdominal pain. Physical Exam Vital Signs: Temp Pulse Resp BP Pulse Ox 98.3 F 81 20 148/66 H 96 05/30/16 11:09 05/30/16 14:00 05/30/16 13:59 05/30/16 11:09 05/30/16 13:59 Intake & Output 05/29/16 05/30/16 05/31/16 06:59 06:59 06:59 Intake Total 728 1349 240 Balance 728 1349 240 Weight 60.9 kg 61.9 kg GENERAL: No acute distress HEENT: Conjunctiva clear, nonicteric, moist mucous membranes, no JVD, midline trachea RESPIRATORY: Diminished breath sounds, no overt wheezing CARDIAC: Regular rate and rhythm, no murmurs/gallops/rubs ABDOMEN: Soft, nondistended, nontender, positive bowel sounds, no rebound, no guarding EXTREMETIES: No edema, cyanosis, clubbing NEUROLOGIC: Alert, oriented to person/place/time, CN's grossly intact, no focal deficits SKIN: No rash, wounds PSYCH: Normal mood, normal affect Results Laboratory Results: 05/29/16 05:25 05/29/16 05:25 Impressions: Chest X-Ray 05/25/16 15:08 IMPRESSION: COPD with bibasilar infiltrates right greater than left. Findings are consistent with pneumonia. Assessment & Plan - Diagnosis (1) Acute respiratory failure with hypercapnia Is this a current diagnosis for this admission?: YesPlan: Continue oxygen supplementation. Patient will discharge home in the morning with home hospice. (2) Pneumonia Is this a current diagnosis for this admission?: YesPlan: Likely bacterial. Continue oral Levaquin. (3) COPD exacerbation Is this a current diagnosis for this admission?: YesPlan: Continue prednisone, Singulair, bronchodilators. (4) Encephalopathy Is this a current diagnosis for this admission?: Yes (5) Hyperkalemia Is this a current diagnosis for this admission?: Yes (6) Anemia Is this a current diagnosis for this admission?: Yes (7) Anxiety Is this a current diagnosis for this admission?: Yes (8) Chronic pain Is this a current diagnosis for this admission?: Yes (9) Leukocytosis Is this a current diagnosis for this admission?: Yes (10) Constipation Is this a current diagnosis for this admission?: Yes - Time Time Spent with patient: 25-34 minutes
[2016-05-30] MEDS: TRAMADOL HCL 50 MG TABLET PO PRN (20:36)
[2016-05-30] MEDS: ASPIRIN 81 MG TABLET, ENT COATED PO SCH (21:04)
[2016-05-30] MEDS: ATORVASTATIN CALCIUM 10 MG TABLET PO SCH (21:04)
[2016-05-30] MEDS: MONTELUKAST SODIUM 10 MG TABLET PO SCH (21:04)
[2016-05-31] MEDS: ALPRAZOLAM 0.5 MG TABLET PO SCH (05:29)
[2016-05-31] MEDS: TRAMADOL HCL 50 MG TABLET PO PRN (05:30)
[2016-05-31] MEDS: ONDANSETRON HCL INJ/PF 4 MG/2 ML SDV IV PRN (05:30)
[2016-05-31 05:45] LABS: ABSOLUTE LYMPHOCYTES (AUTO) 2.1 10^3/uL (0.5-4.7); ABSOLUTE MONOCYTES (AUTO) 0.8 10^3/uL (0.1-1.4); ABSOLUTE NEUT (AUTO) 9.2 10^3/uL (1.7-8.2); EOSINOPHILS % (AUTO) 14.4 % (0-6); HEMATOCRIT 29.6 % (36.0-47.0); HEMOGLOBIN 9.6 g/dL (12.0-15.5); HGB HCT DIFFERENCE -0.8; LYMPHOCYTES % (AUTO) 14.9 % (13-45); MEAN CORPUSCULAR HEMOGLOBIN 26.8 pg (27.0-33.4); MEAN CORPUSCULAR HGB CONC 32.5 g/dL (32.0-36.0); MEAN CORPUSCULAR VOLUME 83 fl (80-97); MONOCYTES % (AUTO) 5.5 % (3-13); RED BLOOD COUNT 3.58 10^6/uL (3.72-5.28); RED CELL DISTRIBUTION WIDTH 16.8 % (11.5-14.0); SEGMENTED NEUTROPHILS % (AUTO) 65.2 % (42-78); WHITE BLOOD COUNT 14.1 10^3/uL (4.0-10.5)
[2016-05-31 06:04] LABS: ANION GAP 8 (5-19); BLOOD UREA NITROGEN 27 mg/dL (7-20); CALCIUM 11.1 mg/dL (8.4-10.2); CARBON DIOXIDE 38 mmol/L (22-30); CHLORIDE 89 mmol/L (98-107); CREATININE RESULT 0.88 mg/dL (0.52-1.25); GLUCOSE 73 mg/dL (75-110); POTASSIUM 4.7 mmol/L (3.6-5.0); SODIUM 134.9 mmol/L (137-145)
[2016-05-31] MEDS: ENOXAPARIN SODIUM INJ 40 MG/0.4 ML DISP.SYRIN SUBCUT SCH (08:04)
[2016-05-31] MEDS: PREDNISONE 20 MG TABLET PO SCH (08:08)
[2016-05-31] MEDS: LANSOPRAZOLE 15 MG TAB.RAP.DR PO SCH (08:09)
[2016-05-31] MEDS: FERROUS SULFATE 325 MG TABLET PO SCH (08:09)
[2016-05-31] MEDS: ALBUTEROL SULFATE 0.083% NEB 2.5 MG/3 ML AMPUL NEB SCH (08:28)
[2016-05-31] MEDS: LORAZEPAM INJ 2 MG/1 ML VIAL IV PRN (08:45)
[2016-05-31 09:24] VITALS: BP 148/64
--- NOTE | 2016-05-31 17:20 | PDOC DISCHARGE SUMMARY ---
General - Admit/Disc Date/PCP Admission Date/Primary Care Provider: 05/25/16 18:06 Discharge Date: 05/31/16 - Discharge Diagnosis (1) Acute respiratory failure with hypercapnia Is this a current diagnosis for this admission?: Yes (2) Pneumonia Is this a current diagnosis for this admission?: Yes (3) COPD exacerbation Is this a current diagnosis for this admission?: Yes (4) Encephalopathy Is this a current diagnosis for this admission?: Yes (5) Hyperkalemia Is this a current diagnosis for this admission?: Yes (6) Anemia Is this a current diagnosis for this admission?: Yes (7) Anxiety Is this a current diagnosis for this admission?: Yes (8) Chronic pain Is this a current diagnosis for this admission?: Yes (9) Leukocytosis Is this a current diagnosis for this admission?: Yes (10) Constipation Is this a current diagnosis for this admission?: Yes - Additional Information Resuscitation Status: Full Code Discharge Diet: Regular Discharge Activity: Activity As Tolerated Home Medications: Albuterol Sulfate [Ventolin Hfa] 2 puff IH Q4HP PRN 05/25/16 Aspirin [Aspirin EC] 81 mg PO QHS 05/25/16 Carvedilol [Coreg 12.5 mg Tablet] 12.5 mg PO DAILY 05/25/16 Montelukast Sodium [Singulair 10 mg Tablet] 10 mg PO DAILY 05/25/16 Omeprazole 20 mg PO DAILY 05/25/16 Promethazine HCl [Phenergan 25 mg Tablet] 25 mg PO Q12 05/25/16 Tiotropium [place] [Spiriva Handihaler 18 mcg/dose (30 Dose)] 1 cap IH DAILY 09/03 Acetaminophen [Tylenol 325 mg Tablet] 650 mg PO Q4HP PRN tablet 05/31/16 Albuterol Sulfate [Ventolin 0.083% Neb 2.5 mg/3 mL Ampul] 2.5 mg NEB RTQ6HP PRN vial.neb 05/31/16 Alprazolam [Xanax 0.5 mg Tablet] 0.5 mg PO Q8 #60 tablet 05/31/16 Amlodipine Besylate [Norvasc 5 mg Tablet] 5 mg PO DAILY #30 tablet 05/31/16 Docusate Sodium [Colace 100 mg Capsule] 100 mg PO BID #60 capsule 05/31/16 Hydrocodone/Acetaminophen [[place] 10-325 mg Tablet] 0.5 tab PO DAILY #30 tablet 05/31/16 Ipratropium/Albuterol Sulfate [Duoneb 3 ml Ampul] 3 ml [facility] [id number] [email or web address] 05/31/16 Levofloxacin [Levaquin 750 mg Tablet] 750 mg PO Q2DAYS@1200 #3 tablet 05/31/16 Prednisone [Deltasone 10 mg Tablet] 10 mg PO DAILY #0 05/31/16 Prednisone [Deltasone 20 mg Tablet] 40 mg PO QAM #5 tablet 05/31/16 History of Present Illness Patient complains of: Shortness of breath History of Present Illness: JALYN MERCEDES is a 80 year old female with history of oxygen dependent COPD that presents to the emergency department by EMS with difficulty breathing, weakness , fevers. Patient was noted by EMS to have temperature 101.0F. I cannot obtain adequate history from patient secondary to encephalopathic state from hypercapnia. Hospital Course Hospital Course: Patient was admitted for acute on chronic respiratory failure as a result COPD and pneumonia. To his treated with steroids and antibiotics and improved back to her baseline respiratory status. Discussions were held with patient and her son during this admission. Patient has had progressive end-stage lung disease over the past 5 years to the point that she [place] live with [place] son. It's the patient and the son's decision that she be discharged to home hospice so these arrangements were made. Physical Exam Vital Signs: Temp Pulse Resp BP Pulse Ox 97.2 F 73 19 148/64 H 99 05/31/16 09:22 05/31/16 09:22 05/31/16 09:22 05/31/16 09:22 05/31/16 09:22 Intake & Output 05/30/16 05/31/16 06/01/16 06:59 06:59 06:59 Intake Total 1349 1108 Balance 1349 1108 Weight 61.9 kg 60.2 kg GENERAL: No acute distress HEENT: Conjunctiva clear, nonicteric, moist mucous membranes, no JVD, midline trachea RESPIRATORY: Diminished breath sounds, no overt wheezing CARDIAC: Regular rate and rhythm, no murmurs/gallops/rubs ABDOMEN: Soft, nondistended, nontender, positive bowel sounds, no rebound, no guarding EXTREMETIES: No edema, cyanosis, clubbing NEUROLOGIC: Alert, oriented to person/place/time, CN's grossly intact, no focal deficits SKIN: No rash, wounds PSYCH: Normal mood, normal affect Results Laboratory Results: 05/31/16 04:34 05/31/16 04:34 05/31/16 05/31/16 04:34 04:34 WBC 14.1 H RBC 3.58 L Hgb 9.6 L Hct 29.6 L MCV 83 MCH 26.8 L MCHC 32.5 RDW 16.8 H Plt Count 308 Seg Neutrophils % 65.2 Lymphocytes % 14.9 Monocytes % 5.5 Eosinophils % 14.4 H Basophils % 0.0 Absolute Neutrophils 9.2 H Absolute Lymphocytes 2.1 Absolute Monocytes 0.8 Absolute Eosinophils 2.0 H Absolute Basophils 0.0 Sodium 134.9 L Potassium 4.7 Chloride 89 L Carbon Dioxide 38 H Anion Gap 8 BUN 27 H Creatinine 0.88 Est GFR ( Amer) > 60 Est GFR (Non-Af Amer) > 60 Glucose 73 L Calcium 11.1 H Impressions: Chest X-Ray 05/25/16 15:08 IMPRESSION: COPD with bibasilar infiltrates right greater than left. Findings are consistent with pneumonia. Qualifiers PATEINT BEING DISCHARGED WITH ANY OF THE FOLLOWING DIAGNOSIS?: No Plan Time Spent: Less than 30 Minutes
== END 2016-05-31 09:18 | disposition hospice, home (50) | DRG 189 ==
LOC: ER 14:35 → EH 18:06 → UNDOADMIN 18:17 → EH 18:17 → 3S 23:13
PROVIDERS: ADMIT Family Medicine; ATTEND Family Medicine
PROC: 5A09457 Assistance with Respiratory Ventilation, 24-96 Consecutive Hours, Continuous Positive Airway Pressure (ICD-10-PCS; principal; 2016-05-25)
PROC: 3E0F73Z Introduction of Anti-inflammatory into Respiratory Tract, Via Natural or Artificial Opening (ICD-10-PCS; 2016-05-25)
PROC: 30233N1 Transfusion of Nonautologous Red Blood Cells into Peripheral Vein, Percutaneous Approach (ICD-10-PCS; 2016-05-26)
DX: J96.22 Acute and chronic respiratory failure with hypercapnia (principal); J15.9 Unspecified bacterial pneumonia; J44.1 Chronic obstructive pulmonary disease with (acute) exacerbation; J44.0 Chronic obstructive pulmonary disease with (acute) lower respiratory infection; E87.5 Hyperkalemia; D64.9 Anemia, unspecified; F41.9 Anxiety disorder, unspecified; G89.29 Other chronic pain; K59.00 Constipation, unspecified; I10 Essential (primary) hypertension; K21.9 Gastro-esophageal reflux disease without esophagitis; E86.0 Dehydration; Z79.899 Other long term (current) drug therapy; Z99.81 Dependence on supplemental oxygen; Z88.0 Allergy status to penicillin; Z88.6 Allergy status to analgesic agent
CPT/HCPCS: 36415; 36430; 71010; 80048; 80053; 81001; 82607; 82728; 82746; 82803; 83540; 83550; 83605; 83735; 84466; 84484; 85025; 85027; 85045; 85610; 86850; 86900; 86901; 86920; 87040; 87070; 87077; 87205; 87804; 93005; 93010; 94640; 94660; 96365; 99285; G8978-GP; G8979-GP; J0360; J1650; J1956; J2060; J2405; J2550; J2920; J3490; J7030; J7512; J7620; P9016; S0028